=== PATIENT | female | born 1955 | race Caucasian/White ===

== ENCOUNTER → 2020-03-15 | Day surgery (SDC) | payer MEDICARE, OTHER ==
[~2020-03-15] MED LIST: ALLEGRA ALLERG180 M1 PO; CYMBALTA60 MG PO; DICLOFENAC SODI75 MG PO; DULOXETINE HCL30 MG PO; LIDOCAINE PAIN1 EACH TOP; LIPITOR 10MG TA10 MG PO; MELOXICAM15 MG PO; MOBIC15 MG PO; NORCO 5-325 TA1 EACH PO; SYNTHROID88 MCG PO
== END | disposition home or self-care (01) ==
LOC: FAS 10:50
DX: M48.062 Spinal stenosis, lumbar region with neurogenic claudication (principal); F17.210 Nicotine dependence, cigarettes, uncomplicated; Z00.6 Encounter for examination for normal comparison and control in clinical research program; R06.83 Snoring; E03.9 Hypothyroidism, unspecified; Z79.899 Other long term (current) drug therapy; Z91.038 Other insect allergy status; Z91.011 Allergy to milk products; Z88.8 Allergy status to other drugs, medicaments and biological substances; Z98.1 Arthrodesis status
CPT/HCPCS: 72020; C1889; J0690; J1100; J2001; J2250; J2704; J7120; Q9967

== ENCOUNTER 2020-05-15 14:12 | Emergency (ER) | payer MEDICARE, OTHER ==
[~2020-05-15 14:12] MED LIST changes: -MOBIC15 MG PO
[2020-08-08] MEDS ORDERED: MOBIC15 MG PO (15:55)
== END 2020-05-15 16:36 | disposition home or self-care (01) ==
LOC: FER 14:12
DX: S83.422A Sprain of lateral collateral ligament of left knee, initial encounter (principal); W01.0XXA Fall on same level from slipping, tripping and stumbling without subsequent striking against object, initial encounter; Y92.009 Unspecified place in unspecified non-institutional (private) residence as the place of occurrence of the external cause
CPT/HCPCS: 73564